=== PATIENT | female | born 1995 | race African-American/Black ===

== ENCOUNTER 2016-07-13 17:18 | Inpatient (IN) | payer MEDICAID, OTHER ==
[~2016-07-13] VITALS: Ht 160 cm; Wt 108.4 kg
[~2016-07-13 17:18] MED LIST: CHLO25 PO; CLON.2 PO; CLON0.1T PO; DIVA500T35 PO; FOLI1 PO; IBUP-1681 PO; LURA80 PO; METF500T4 PO; METO50 PO; QUET200T PO; TRAZ150 PO
[2016-07-13] MEDS ORDERED: CETI-260 PO (17:55)
[2016-07-13 18:57] LABS: BASOPHILS % (AUTO) 0.2 % (0.0-2.0); EOSINOPHILS % (AUTO) 0 % (1.0-6.0); HEMATOCRIT 41.8 % (36-46); HEMOGLOBIN 13.6 g/dL (12.0-16.0); LYMPHOCYTES # (AUTO) 3.1 K/uL (1.0-4.8); LYMPHOCYTES % (AUTO) 37.2 % (22.0-44.0); MEAN CORPUSCULAR HEMOGLOBIN 27.5 pg (26.0-34.0); MEAN CORPUSCULAR HGB CONC 32.6 G/dL (31.0-37.0); MEAN CORPUSCULAR VOLUME 85 fL (80-100); MONOCYTES # (AUTO) 0.6 K/uL (0.1-1.0); MONOCYTES % (AUTO) 6.9 % (2.0-9.0); NEUTROPHILS # (AUTO) 4.7 K/uL (1.8-7.7); NEUTROPHILS % (AUTO) 55.7 % (40.0-70.0); PLATELET COUNT (AUTO) 276 K/uL (150-450); RED BLOOD CELL COUNT(AUTO) 4.95 MIL/uL (4.00-5.20); RED CELL DISTRIBUTION WIDTH 14.7 % (11.5-14.5); WHITE BLOOD COUNT (AUTO) 8.4 K/uL (4.5-11.0)
[2016-07-13 19:07] LABS: ANION GAP 11 mmol/L (8-16); CALCIUM, TOTAL 9.2 mg/dL (8.8-10.5); CARBON DIOXIDE 26 mmol/L (22-29); CHLORIDE 102 mmol/L (98-107); CREATININE 0.87 mg/dL (0.60-1.30); GLOMERULAR FILTR. RATE CALC > 60 mL/min (>60); POTASSIUM 3.9 mmol/L (3.5-5.1); SODIUM SERUM 139 mmol/L (136-145); UREA NITROGEN, BLOOD 11 mg/dL (7-18)
[2016-07-13 19:13] LABS: ALANINE AMINOTRANSFERASE 60 U/L (12-78); ALBUMIN 3.8 g/dL (3.4-5.0); ASPARTATE AMINOTRANSFERASE 30 U/L (15-37); BILIRUBIN,TOTAL 0.2 mg/dL (0.1-1.0)
[2016-07-14] MEDS ORDERED: HALOPERIDOL 5 MG TABLET PO ONE
[2016-07-14] MEDS ORDERED: DiphenhydrAMINE HCL 25 MG CAPSULE PO ONE
[2016-07-14] MEDS ORDERED: LORazepam 2 MG TABLET PO ONE
[2016-07-14] MEDS ORDERED: HALOPERIDOL 5 MG TABLET PO PRN (00:15)
[2016-07-14] MEDS ORDERED: ZOLPIDEM TARTRATE 10 MG TABLET PO PRN (00:15)
[2016-07-14] MEDS ORDERED: LORazepam 2 MG TABLET PO PRN (00:15)
[2016-07-14 01:19] VITALS: BP 135/90
[2016-07-14 01:28] LABS: APPEARANCE,URINE CLOUDY (CLEAR); GLUCOSE, URINE (UA) NEGATIVE (NEGATIVE); KETONES,URINE NEGATIVE (NEGATIVE); LEUKOCYTE ESTERASE ,URINE MODERATE (NEGATIVE); OCCULT BLOOD,URINE MODERATE (NEGATIVE); PH,URINE 6.5 (5.0-8.0); PROTEIN,URINE NEGATIVE (NEGATIVE)
[2016-07-14] MEDS ORDERED: -PHARMACY VACCINE NOTE- MISC ONE ×2 (01:30)
[2016-07-14] MEDS ORDERED: INFLUENZA VIRUS VACCINE QVS 2016-17 (3YR+)/PF 60 MCG/0.5 ML SYRINGE IM ONE (01:30)
[2016-07-14 01:34] LABS: ADD UA MICROSCOPIC YES
[2016-07-14 01:57] LABS: SQUAMOUS EPITHELIAL CELL,UR Few /LPF (None Seen)
[2016-07-14 08:05] VITALS: BP 156/100
[2016-07-14] MEDS: ChlorproMAZINE HCL 25 MG TABLET PO SCH ×2 (09:11→16:15)
[2016-07-14] MEDS: DIVALPROEX SODIUM 250 MG DR TABLET PO SCH ×3 (09:11→16:15)
[2016-07-14] MEDS ORDERED: IBUPROFEN 400 MG TABLET PO PRN (10:30)
[2016-07-14] MEDS ORDERED: ACETAMINOPHEN 325 MG TABLET PO PRN (10:30)
[2016-07-14 18:53] VITALS: BP 146/90
[2016-07-14] MEDS: CloNIDine HCL 0.2 MG TABLET PO SCH (20:03)
[2016-07-14] MEDS: TraZODone HCL 50 MG TABLET PO SCH (20:04)
[2016-07-14] MEDS: QUEtiapine FUMARATE 100 MG TABLET PO SCH (20:04)
[2016-07-15 06:38] VITALS: BP 135/89
[2016-07-15] MEDS ORDERED: -PHARMACY VACCINE NOTE- MISC ONE ×2 (06:45)
[2016-07-15] MEDS ORDERED: INFLUENZA VIRUS VACCINE QVS 2016-17 (3YR+)/PF 60 MCG/0.5 ML SYRINGE IM ONE (06:45)
[2016-07-15 07:02] LABS: HEMOGLOBIN A1C 5.4 % (4.5-6.2)
[2016-07-15 07:12] LABS: CHOL/HDL RATIO 4.8 (3.9-5.7); THYROID STIMULATING HORMONE 1.24 uIU/mL (0.36-3.74)
[2016-07-15] MEDS: DIVALPROEX SODIUM 250 MG DR TABLET PO SCH ×3 (09:27→17:24)
[2016-07-15] MEDS: ChlorproMAZINE HCL 25 MG TABLET PO SCH ×2 (09:27→17:24)
[2016-07-15] MEDS: CIPROFLOXACIN HCL 250 MG TABLET PO SCH ×2 (09:27→17:24)
[2016-07-15] MEDS: CETIRIZINE HCL 10 MG TABLET PO SCH (09:29)
[2016-07-15 17:14] VITALS: BP 127/67
[2016-07-15] MEDS: QUEtiapine FUMARATE 100 MG TABLET PO SCH (20:16)
[2016-07-15] MEDS: TraZODone HCL 50 MG TABLET PO SCH (20:16)
[2016-07-15] MEDS: CloNIDine HCL 0.2 MG TABLET PO SCH (20:51)
[2016-07-16 06:36] VITALS: BP 123/72
[2016-07-16] MEDS: DIVALPROEX SODIUM 250 MG DR TABLET PO SCH ×3 (08:33→16:00)
[2016-07-16] MEDS: CETIRIZINE HCL 10 MG TABLET PO SCH (08:33)
[2016-07-16] MEDS: ChlorproMAZINE HCL 25 MG TABLET PO SCH ×2 (08:33→16:00)
[2016-07-16 08:34] VITALS: BP 147/96
[2016-07-16] MEDS: CIPROFLOXACIN HCL 250 MG TABLET PO SCH ×2 (08:34→16:00)
[2016-07-16] MEDS ORDERED: CIP250 PO (14:26)
[2016-07-16] MEDS ORDERED: DIVA500T35 PO (14:27)
[2016-07-22] MEDS ORDERED: CIPROFLOXACIN HCL 250 MG TABLET PO SCH (17:00)
== END 2016-07-16 16:15 | disposition home or self-care (01) | DRG 750 ==
LOC: EEVIPCON 17:18 → EMS 17:21 → 3EI 07-14 00:23
PROVIDERS: ADMIT Psychiatry & Neurology Psychiatry; ATTEND Psychiatry & Neurology Psychiatry
DX: F25.9 Schizoaffective disorder, unspecified (principal); E11.9 Type 2 diabetes mellitus without complications; I10 Essential (primary) hypertension; F20.0 Paranoid schizophrenia; F32.9 Major depressive disorder, single episode, unspecified; F41.9 Anxiety disorder, unspecified; J45.909 Unspecified asthma, uncomplicated; E78.5 Hyperlipidemia, unspecified; Z79.899 Other long term (current) drug therapy; Z79.84 Long term (current) use of oral hypoglycemic drugs; Z28.21 Immunization not carried out because of patient refusal
CPT/HCPCS: 83036; 84443; 87086; 99285; G0480